=== PATIENT | female | born 1975 | race Caucasian/White ===

== ENCOUNTER → 2022-11-05 14:05 | Outpatient (BNVA) | payer OTHER, SELFPAY | PROVIDERS: PCP Orthopaedic Surgery; Visit Provider Student in an Organized Health Care Education/Training Program | DX: M79.7 Fibromyalgia (principal) | CPT/HCPCS: 99202 ==

== ENCOUNTER 2022-12-13 07:47 | Outpatient (REF) | payer OTHER, SELFPAY ==
--- NOTE | ~2022-12-13 | XR_ITS ---
EXAMINATION: XR knee standing BI, XR knee RT 2V CLINICAL INFORMATION: Reason for Exam M25.569 - Pain in unspecified knee COMPARISON: None. TECHNIQUE: Standing view of the bilateral knees and 2 views of the right knee XR/XR knee standing BI FINDINGS/IMPRESSION: * No acute fracture or dislocation. * Severe narrowing of the medial tibiofemoral compartment and tricompartmental osteophytes. * No soft tissue abnormality.
--- NOTE | ~2022-12-13 | XR_ITS ---
EXAMINATION: XR knee standing BI, XR knee RT 2V CLINICAL INFORMATION: Reason for Exam M25.569 - Pain in unspecified knee COMPARISON: None. TECHNIQUE: Standing view of the bilateral knees and 2 views of the right knee XR/XR knee RT 2V FINDINGS/IMPRESSION: * No acute fracture or dislocation. * Severe narrowing of the medial tibiofemoral compartment and tricompartmental osteophytes. * No soft tissue abnormality.
== END 2022-12-13 07:48 | disposition home or self-care (01) ==
LOC: HO.HOSX 07:47
PROVIDERS: Visit Provider Physician Assistant
DX: M17.0 Bilateral primary osteoarthritis of knee (principal); G56.03 Carpal tunnel syndrome, bilateral upper limbs; M25.551 Pain in right hip; M25.552 Pain in left hip
CPT/HCPCS: 73560; 73565; 99202

== ENCOUNTER 2023-02-27 14:00 | Outpatient (RCR) | payer OTHER, SELFPAY ==
--- NOTE | 2023-02-13 13:51 | MHC.PT.EP ---
[facility] [place] Office [place] Office [place] Office [address] [place] [address] [phone] F: [phone] F: [phone] F: [phone] F: [phone] Physical Therapy Plan of Care Date of Evaluation: Date of Surgery: Diagnosis: Lumbar radiculopathy, Pain in bilateral hips and bilateral knees Assessment: Patient is a pleasant 47 y.o. female who is referred to PT by Yessy Zaragoza PA-C, with Dx of lumbar radiculopathy, bilateral knee pain, bilateral hip pain. Patient woudl benefit from further testing from specialist (rhemuatologist) for connective tissue disorders due to presentation of joint hypermobility (with hx of dislocations/subluxations per pt), pt discussion with me of increased scar tissue in body found during surgeries, and early onset arthritis in multiple joints. Patient impairments include both hypermobility and limited ROM due to pain, weakness, antalgic gait, poor posture. Patient current functional limitations are walking, cleaning, squat/bend, balance concerns, stair use, caring for special needs child. Patient will benefit from skilled PT to address aforementioned impairments and functional limitations to meet established goals. Frequency and Duration: The patient will be seen 2x/week for 4 weeks Short Term Goals: 2 weeks Patient demonstrates consistency and independence with HEP to self manage symptoms. Patient verbalized adn demonstrates understanding of joint protection positions and postures to reduce strain on multiple joints. [facility] Goals: 4 weeks Patient presents with increased bilateral hip flexion AROM 90 degrees to improve sit to stand from low surface. Patient presents with increased bilateral quad strength 4/5 to be able to ascend/descend 1 flight of stairs reciprocally. Treatment Plan: Modalities to reduce pain, spasms and effusion. Manual therapy to restore motion and function. Therapeutic exercise to improve strength and flexibility. Neuromuscular re-education for posture and balance. Therapeutic activities to return to functional activities of daily living. Electronically signed by: Riki Rock, PT, DPT Please sign and return to therapist. Thank you for your referral.
--- NOTE | 2023-05-09 12:50 | MHC.PT.DC ---
[facility] [place] Office [place] Office [place] Office [address] [place] [address] [phone] F: [phone] F: [phone] F: [phone] F: [phone] Physical Therapy Discharge Report Diagnosis: Lumbar radiculopathy, Pain in bilateral hips and bilateral knees Date of Surgery: Date of Evaluation: 02/12/23 Date of Discharge: 05/09/23 Treatments to Date: 2 Cancellations to Date: No Shows to Date: Discharge Status: Patient Elected to Stop Recommend MD Follow-up Discharge Summary: Patient called to cease attending PT at this time due to pain and co-morbidities. Last treatment session assessment on 02/27/2023 reads, She is tender in bilateral QL, glute med, piriformis, length of ITB. I have her perform gentle stretching and strengthening program for muscle groups avoiding end ranges to reduce hyperextension of joints. Utilized moist heat end of session to reduce soreness. I also instructed her to take off braces with knee exercises since the type she has inhibits her quads. I also encouraged her to reach out to project reservoir engineer to discuss testing for connective tissue disorders. Electronically signed by: Riki Rock, PT, DPT Please sign and return to therapist. Thank you for your referral.
== END 2023-05-09 12:51 | disposition home or self-care (01) ==
LOC: HO.PT 14:00
PROVIDERS: Visit Provider Physician Assistant
DX: M54.16 Radiculopathy, lumbar region (principal); M25.551 Pain in right hip; M25.552 Pain in left hip
CPT/HCPCS: 97110; 97161

== ENCOUNTER 2024-07-12 11:41 | Outpatient (AMB) | payer OTHER, SELFPAY ==
--- NOTE | 2024-07-12 12:06 | A.OFFVIS_ITS ---
VS Expanded 07/12/24 12:07 07/15/24 10:29 Height 5 ft 5 in 5 ft 5 in Weight 185 lb 10.067 oz 185 lb BMI 30.9 30.8 Intake Visit Reasons: Bloating & Diarrhea/CONFIRMED Allergies aspirin Allergy (Intermediate, Verified 12/13/22 11:26) Hives cephalexin [From Keflex] Allergy (Intermediate, Verified 12/13/22 11:26) abd pain,numbness and tingling in hands diphenhydramine [From Benadryl] Allergy (Intermediate, Verified 12/13/22 11:26) Anxiety latex Allergy (Intermediate, Verified 12/13/22 11:26) Hives tramadol Allergy (Intermediate, Verified 12/13/22 11:) Anxiety codeine Allergy (Unknown, Verified 12/13/22 11:) Unknown ibuprofen Allergy (Unknown, Verified 12/13/22 11:) Unknown iodine contrast Allergy (Uncoded 11/05/22 14:18) Hives Nutrition Presentation Details: Pt presents for MNT for IBS; significant gas,bloating, diarrhea Pt reports having a variety of foods and trying elimination diet on and off (lactose, gluten and low fat foods) Reports noticing increased gas/diarrhea after consuming breads (non gluten free) BS Monitoring Most Recent Diabetes Results: No Data to Display DJY-Xhylrxz-Yl.Jeor Equation Height: 5 ft 5 in Weight: 185 lb Resting Metabolic Rate: 1473.02 Calculated Activity Level: Mild Activity Calories Needed to Maintain Weight: 2024.40 Diagnosis Nutrition problem #1: food nutri know defi As related to (etiology) #1: diagnosis As evidenced by (sign/symptom) #1: knowledge deficit of diet [facility] Medical History (Updated 07/15/24 @ 10:24 by Mayela Lowry, RD, LDN) Low back pain Osteoarthritis IBS (irritable bowel syndrome) Smoker Obesity Cervical lymphadenopathy Fibromyalgia Allergic conjunctivitis Allergic rhinitis Hand dermatitis Vitamin D deficiency Kidney stones Hematuria Interstitial cystitis Surgical History H/O nephrolithotomy with removal of calculi H/O: hysterectomy Hx of cholecystectomy Previous section H/O lumpectomy Normal colonoscopy Family History Father Myocardial infarct CAD (coronary artery disease) Cataract Leukemia Mother Multiple myeloma Hypertension Maternal Grandmother Breast cancer Other H/O nephrolithotomy with removal of calculi Social History Alcohol intake: never Patient Tobacco Use Status: Current someday Tobacco user Assessment & Plan Assessment & Plan (1) IBS (irritable bowel syndrome): Code(s): K58.9 - Irritable bowel syndrome, unspecified Category: Medical Plan Wt: 84 Kg (08/03 ) Est kcal needs as per MSJ: 2000 (40% carb, 30% protein/fat) Est fluid needs as per 25-30 ml/d: 2500 Est prot per day as per 1 g/kg bw: 84 Recommend fiber intake : 8-10 g per day and gradually increase to 25-28 g per day for women and 35-38 g for men or as tolerated Recommend sodium intake per day : less than 2300 mg Educated patient on: ( R = reviewed V = verbalizes understanding N/R = needs review N/A = not applicable * Gluten free sources of foods : R * Dairy free food options: R * Low fat options:R * food sources of carbohydrate, adequate serving sizes and its role in various health conditions: R V N/R * Differences between complex carbohydrates a simple carbohydrates, role of fiber in diet: R V N/R * Lean protein sources of foods: R V NR * Differences between types of fats and role in diet (mono on saturated fat fatty acids, saturated fatty acids, trans fats): R basic * Food sources of sodium in salt and healthy modifications for heart health in kidney health: R V R/V * Vitamins and minerals: R * Healthy plate method concept: R V N/R * Physical activity: Benefits a precaution: R V N/R Patient Instructions: Practice mindful eating Work on choosing foods naturally gluten free in a consistent manner - see list of meals ideas and continue choosing lactose free foods, read ingredient list to help you choose those without dairy or to choose lactose free choices Keep hydrated and physically active as able Coding Level of Care Code Nutr Indiv Intake (21260) Diagnoses IBS (irritable bowel syndrome) K58.9 Time Spent (min) 30
[2024-07-12 12:07] VITALS: BMI 30.9
[2024-07-15 10:29] VITALS: BMI 30.8
== END 2024-07-12 12:47 | disposition home or self-care (01) ==
PROVIDERS: Visit Provider Dietitian, Registered
DX: K58.9 Irritable bowel syndrome, unspecified (principal)

== ENCOUNTER → 2024-07-12 11:41 | Outpatient (BNVA) | payer OTHER, SELFPAY | PROVIDERS: Visit Provider Dietitian, Registered | DX: K58.9 Irritable bowel syndrome, unspecified (principal); R14.0 Abdominal distension (gaseous); R19.7 Diarrhea, unspecified; Z71.3 Dietary counseling and surveillance | CPT/HCPCS: 97802 ==